=== PATIENT | female | born 1945 ===

== ENCOUNTER 2019-02-06 19:21 | Outpatient (CLI) | payer BC, MEDICARE | END 2019-02-06 19:22 | disposition home or self-care (01) | LOC: C.SLEEP 19:22 | DX: G47.33 Obstructive sleep apnea (adult) (pediatric) (principal) ==

== ENCOUNTER 2019-04-23 19:13 | Outpatient (CLI) | payer BC, MEDICARE | END 2019-04-23 19:14 | disposition home or self-care (01) | LOC: C.SLEEP 19:14 | DX: G47.33 Obstructive sleep apnea (adult) (pediatric) (principal) ==